=== PATIENT | male | born 1945 | race Caucasian/White ===

== ENCOUNTER → 2018-09-07 | Outpatient (CLI) | payer OTHER | LOC: FIMAGING 10:09 | PROVIDERS: ATTEND Internal Medicine Cardiovascular Disease | DX: Z13.6 Encounter for screening for cardiovascular disorders (principal); I71.2 Thoracic aortic aneurysm, without rupture; I10 Essential (primary) hypertension; E78.5 Hyperlipidemia, unspecified; R91.8 Other nonspecific abnormal finding of lung field; Z82.49 Family history of ischemic heart disease and other diseases of the circulatory system ==

== ENCOUNTER 2018-10-20 03:33 | Emergency (ER) | payer OTHER ==
[2018-10-20] MEDS ORDERED: NS 1,000 ML IV ONE (03:54)
[2018-10-20 04:21] LABS: PLATELET COUNT 220 10^3/uL (150-400)
[2018-10-20] MEDS ORDERED: IOPAMIDOL (ISOVUE-300) 100 ML BTL ONE (05:15)
[2018-10-20] MEDS ORDERED: KETOROLAC 15 MG/1 ML SDV ONE (05:51)
[2018-10-20] MEDS ORDERED: KETOROLAC 15 MG/1 ML SDV IVP ONE (05:52)
[2018-10-20] MEDS ORDERED: AMOXICILLIN/CLAVULANATE POT 875/125 MG TAB PO ONE (06:47)
[2018-10-20] MEDS ORDERED: HYDROCOD/APAP 5/325 PREPACK#6 BTL TAKEHOME ONE (06:47)
--- NOTE | 2018-10-20 06:50 | EDPHY ---
H & P Stated Complaint: Abdominal Pain & Fever Time Seen by Provider: 10/20/18 04:56 HPI/ROS: HPI The patient presents with 2 days of progressive lower abdominal pain which started slowly and was intermittent, however overnight became constant and more severe. The pain is achy in nature, worse when he palpates his abdomen and is associated with a low-grade fever of 100.2 F. He has not had any nausea, vomiting, diarrhea, constipation. He denies any dysuria or hematuria. He has no prior history of similar pain.. REVIEW OF SYSTEMS 10 systems were reviewed and negative with the exception of the elements mentioned in the history of present illness. 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 Hypercholesterolemia, history of spinal fusion Soc Hx: Here with his PHYSICAL General Appearance: Alert, no distress Eyes: Pupils equal and round no pallor or injection ENT, Mouth: Mucous membranes moist Respiratory: There are no retractions, lungs are clear to auscultation Cardiovascular: Regular rate and rhythm Gastrointestinal: Abdomen is soft and tender in the left lower quadrant and right lower quadrant without guarding or rebound, no masses, bowel sounds normal Neurological: A&O, moves all extremities Skin: Warm and dry, no rashes Musculoskeletal: Neck is supple non tender Extremities: symmetrical, full range of motion Psychiatric: Patient is oriented X 3, there is no agitation Source: Patient Exam Limitations: No limitations - Personal History Current Tetanus/Diphtheria Vaccine: Yes Current Tetanus Diphtheria and Acellular Pertussis (TDAP): Yes - Medical/Surgical History Hx Asthma: No Hx Chronic Respiratory Disease: No Hx Diabetes: No Hx Cardiac Disease: No Hx Renal Disease: No Hx Cirrhosis: No Hx Alcoholism: No Hx HIV/AIDS: No Hx Splenectomy or Spleen Trauma: No Other PMH: Prostatectomy, High cholesterol, Spinal Fusion - Social History Smoking Status: Never smoked Constitutional: Initial Vital Signs Temperature (C) 37.4 C 10/20/18 03:37 Heart Rate 90 10/20/18 03:37 Respiratory Rate 18 10/20/18 03:37 Blood Pressure 128/82 H 10/20/18 03:37 O2 Sat (%) 95 10/20/18 03:37 O2 Delivery Mode Room Air Allergies/Adverse Reactions: Sulfa (Sulfonamide Antibiotics) Allergy (Verified 10/20/18 03:36) Home Medications: Medication Instructions Recorded Amoxicillin/Clavulanate Pot 875 mg PO BID #14 tab 10/20/18 [Augmentin 875 MG TAB (*)] Crestor 10/20/18 Medical Decision Making - Diagnostics Imaging Results: CT abdomen pelvis with IV contrast demonstrates acute sigmoid diverticulitis without evidence of pericolonic abscess or free air, status post total prostatectomy. Interpreted by direct Radiology. Differential Diagnosis: 73-year-old male who is relatively healthy presents from home with 2 days of progressive lower abdominal pain, now associated with low-grade fever. On exam , he is generally well-appearing with normal vital signs, he does have mild tenderness of his lower abdomen. In the emergency department, patient was given IV fluids, basic labs were obtained which did demonstrate slightly elevated white blood cell count as well as elevated lipase. CT scan of abdomen pelvis performed and demonstrated diverticulitis without complication. The patient was given Toradol for pain. On reassessment he was feeling well. I offered him admission to the hospital verses outpatient antibiotics and he would like to be discharged recuperate at home. I feel this is reasonable as he does not have any complicated diverticulitis, is able to take p. O. Antibiotics and is reliable. I have given him his 1st dose of Augmentin here. He was able to tolerate this without difficulty. I have advised him to follow up with his primary care doctor. - Data Points Laboratory Results: Laboratory Results 10/20/18 04:05 10/20/18 04:05 10/20/18 10/20/18 04:05 04:05 WBC 10.04 10^3/uL H 10^3/uL (3.80-9.50) RBC 4.51 10^6/uL 10^6/uL (4.40-6.38) Hgb 13.6 g/dL L g/dL (13.7-17.5) Hct 40.7 % % (40.0-51.0) MCV 90.2 fL fL (81.5-99.8) MCH 30.2 pg pg (27.9-34.1) MCHC 33.4 g/dL g/dL (32.4-36.7) RDW 12.4 % % (11.5-15.2) Plt Count 220 10^3/uL 10^3/uL (150-400) MPV 9.4 fL fL (8.7-11.7) Neut % (Auto) 79.3 % H % (39.3-74.2) Lymph % (Auto) 8.6 % L % (15.0-45.0) [place] % (Auto) 9.9 % % (4.5-13.0) Eos % (Auto) 1.2 % % (0.6-7.6) Baso % (Auto) 0.6 % % (0.3-1.7) Nucleat RBC Rel Count 0.0 % % (0.0-0.2) Absolute Neuts (auto) 7.97 10^3/uL H 10^3/uL (1.70-6.50) Absolute Lymphs (auto) 0.86 10^3/uL L 10^3/uL (1.00-3.00) Absolute Monos (auto) 0.99 10^3/uL H 10^3/uL (0.30-0.80) Absolute Eos (auto) 0.12 10^3/uL 10^3/uL (0.03-0.40) Absolute Basos (auto) 0.06 10^3/uL 10^3/uL (0.02-0.10) Absolute Nucleated RBC 0.00 10^3/uL 10^3/uL (0-0.01) Immature Gran % 0.4 % % (0.0-1.1) Immature Gran # 0.04 10^3/uL 10^3/uL (0.00-0.10) Sodium 139 mEq/L mEq/L (135-145) Potassium 4.1 mEq/L mEq/L (3.5-5.2) Chloride 112 mEq/L H mEq/L (97-110) Carbon Dioxide 22 mEq/l mEq/l (22-31) Anion Gap 5 mEq/L L mEq/L (6-14) BUN 31 mg/dL H mg/dL (7-23) Creatinine 1.0 mg/dL mg/dL (0.7-1.3) Estimated GFR > 60 Glucose 108 mg/dL H mg/dL (70-100) Calcium 8.9 mg/dL mg/dL (8.5-10.4) Total Bilirubin 0.8 mg/dL mg/dL (0.1-1.4) Conjugated Bilirubin 0.2 mg/dL mg/dL (0.0-0.5) Unconjugated Bilirubin 0.6 mg/dL mg/dL (0.0-1.1) AST 29 IU/L IU/L (17-59) ALT 30 IU/L IU/L (21-72) Alkaline Phosphatase 55 IU/L IU/L (38-126) Total Protein 6.1 g/dL L g/dL (6.3-8.2) Albumin 3.5 g/dL g/dL (3.5-5.0) Lipase 795 IU/L H IU/L (23-300) Medications Given: Discontinued Medications Hydrocodone Bitart/Acetaminophen (Marion 5/325mg Prepack#6) 1 btl TAKEHOME EDNOW ONE Stop: 10/20/18 06:48 Last Admin: 10/20/18 06:58 Dose: 1 btl Amoxicillin/Clavulanate Potassium (Augmentin 875mg) 875 mg PO EDNOW ONE PRN Reason: Protocol Stop: 10/20/18 06:48 Last Admin: 10/20/18 06:57 Dose: 875 mg Sodium Chloride (Ns) 1,000 mls @ 0 mls/hr IV EDNOW ONE; Wide Open PRN Reason: Protocol Stop: 10/20/18 03:55 Last Admin: 10/20/18 04:05 Dose: 1,000 mls Ketorolac Tromethamine (Toradol) 15 mg IVP EDNOW ONE Stop: 10/20/18 05:53 Last Admin: 10/20/18 05:53 Dose: 15 mg Departure - Departure Disposition: Home, Routine, Self-Care Clinical Impression: Diverticulitis Condition: Good Instructions: Hydrocodone/Acetaminophen (By mouth), Diverticulitis (ED) Additional Instructions: Please make sure to drink plenty of fluids. You should return to the emergency department if your worse in any way. I recommend you follow up with your primary care doctor next week. You likely will need a follow-up colonoscopy. Referrals: Ruth Sandhu MD [Primary Care Provider] - As per Instructions Prescriptions: Amoxicillin/Clavulanate Pot [Augmentin 875 MG TAB (*)] 875 mg PO BID #14 tab
[2018-10-20 07:03] VITALS: BP 142/75
== END 2018-10-20 07:03 | disposition home or self-care (01) ==
DX: K57.32 Diverticulitis of large intestine without perforation or abscess without bleeding (principal); Z90.79 Acquired absence of other genital organ(s); E86.9 Volume depletion, unspecified
CPT/HCPCS: 74177; 96361; 96374; 99285; J1885; Q9967

== ENCOUNTER 2018-10-31 21:33 | Emergency (ER) | payer OTHER ==
[2018-10-31] MEDS ORDERED: ONDANSETRON 4 MG/2 ML VIAL ONE (22:13)
[2018-10-31] MEDS ORDERED: KETOROLAC 15 MG/1 ML SDV IVP ONE (22:18)
[2018-10-31] MEDS ORDERED: NS 1,000 ML IV ONE (22:18)
[2018-10-31] MEDS ORDERED: ONDANSETRON 4 MG/2 ML VIAL IVP ONE (22:18)
--- NOTE | 2018-10-31 22:19 | EDPHY ---
H & P Stated Complaint: Abdominal Pain Time Seen by Provider: 10/31/18 22:07 HPI/ROS: Chief Complaint: Abdominal pain, nausea, vomiting HPI: A 73 year presenting with upper abdominal pain that began about 7:00 a.m. Tonight. Patient was recently diagnosed with diverticulitis couple weeks ago and completed a course of Augmentin. Patient states that he has not had any pain or discomfort for the last couple weeks. Otherwise felt well. No fevers or chills. Patient is describing the pain as very different from his diverticulitis. In the upper abdomen. Had some mild nausea. Nausea got significantly worsening vomited just prior to my evaluation. No fevers or chills. No urinary symptoms. No chest pain or shortness of breath. ROS: 10 systems were reviewed and were negative except those elements noted in the HPI. PMH: Diverticulitis Social History: No smoking, no alcohol, no recreational drug use Family History: non-contributory Physical Exam: Gen: Awake, Alert, No Distress HEENT: Nose: no rhinorrhea Eyes: PERRLA, EOMI Mouth: Moist mucosa Neck: Supple, no JVD Chest: nontender, lungs clear to auscultation Heart: S1, S2 normal, no murmur Abd: Soft, non-tender, no guarding Back: no CVA tenderness, no midline tenderness Ext: no edema, non-tender Skin: no rash Neuro: CN II-XII intact, Sensation grossly intact, Strength 5/5 in bilateral upper and lower extremities - Personal History Current Tetanus/Diphtheria Vaccine: Yes Current Tetanus Diphtheria and Acellular Pertussis (TDAP): Yes - Medical/Surgical History Hx Asthma: No Hx Chronic Respiratory Disease: No Hx Diabetes: No Hx Cardiac Disease: No Hx Renal Disease: No Hx Cirrhosis: No Hx Alcoholism: No Hx HIV/AIDS: No Hx Splenectomy or Spleen Trauma: No Other PMH: Prostatectomy, High cholesterol, Spinal Fusion - Social History Smoking Status: Never smoked Constitutional: Initial Vital Signs Temperature (C) 36.4 C 10/31/18 21:38 Heart Rate 74 10/31/18 21:38 Respiratory Rate 18 10/31/18 21:38 Blood Pressure 141/81 H 10/31/18 21:38 O2 Sat (%) 96 10/31/18 21:38 O2 Delivery Mode Room Air Allergies/Adverse Reactions: Sulfa (Sulfonamide Antibiotics) Allergy (Verified 10/31/18 21:36) Home Medications: Medication Instructions Recorded Crestor 10/20/18 Aspirin 81mg (*) 10/31/18 Medical Decision Making - Diagnostics Imaging Results: IMPRESSION: 1. 4 mm echogenic polyp versus stone adherent to the gallbladder wall, immobile on examination. No wall thickening or pericholecystic fluid. Negative Silva's sign. 2. Right renal peripelvic cysts. No hydronephrosis. ELECTRONICALLY SIGNED BY: Melina Heath MD Nov 01, 2018 2:14:55 AM MDT ED Course/Re-evaluation: 73-year-old male presenting with epigastric abdominal pain. Lipase is mildly elevated. Remainder is studies are normal. Does not drink alcohol. Ultrasound shows a polyp but no common bile duct dilatation or findings suggestive acute cholecystitis. Patient is feeling much improved. Plan will be for discharge with follow-up as an outpatient, return for any concerns. - Data Points Laboratory Results: Laboratory Results 10/31/18 21:55 10/31/18 21:55 10/31/18 10/31/18 10/31/18 22:29 21:55 21:55 WBC 15.31 10^3/uL H 10^3/uL (3.80-9.50) RBC 5.07 10^6/uL 10^6/uL (4.40-6.38) Hgb 15.1 g/dL g/dL (13.7-17.5) Hct 45.3 % % (40.0-51.0) MCV 89.3 fL fL (81.5-99.8) MCH 29.8 pg pg (27.9-34.1) MCHC 33.3 g/dL g/dL (32.4-36.7) RDW 12.3 % % (11.5-15.2) Plt Count 310 10^3/uL 10^3/uL (150-400) MPV 9.2 fL fL (8.7-11.7) Neut % (Auto) 89.8 % H % (39.3-74.2) Lymph % (Auto) 4.2 % L % (15.0-45.0) [place] % (Auto) 4.4 % L % (4.5-13.0) Eos % (Auto) 0.8 % % (0.6-7.6) Baso % (Auto) 0.3 % % (0.3-1.7) Nucleat RBC Rel Count 0.0 % % (0.0-0.2) Absolute Neuts (auto) 13.72 10^3/uL H 10^3/uL (1.70-6.50) Absolute Lymphs (auto) 0.65 10^3/uL L 10^3/uL (1.00-3.00) Absolute Monos (auto) 0.68 10^3/uL 10^3/uL (0.30-0.80) Absolute Eos (auto) 0.13 10^3/uL 10^3/uL (0.03-0.40) Absolute Basos (auto) 0.05 10^3/uL 10^3/uL (0.02-0.10) Absolute Nucleated RBC 0.00 10^3/uL 10^3/uL (0-0.01) Immature Gran % 0.5 % % (0.0-1.1) Immature Gran # 0.08 10^3/uL 10^3/uL (0.00-0.10) Sodium 140 mEq/L mEq/L (135-145) Potassium 4.2 mEq/L mEq/L (3.5-5.2) Chloride 107 mEq/L mEq/L (97-110) Carbon Dioxide 23 mEq/l mEq/l (22-31) Anion Gap 10 mEq/L mEq/L (6-14) BUN 35 mg/dL H mg/dL (7-23) Creatinine 1.1 mg/dL mg/dL (0.7-1.3) Estimated GFR > 60 Glucose 102 mg/dL H mg/dL (70-100) Calcium 9.2 mg/dL mg/dL (8.5-10.4) Total Bilirubin 0.6 mg/dL mg/dL (0.1-1.4) AST 30 IU/L IU/L (17-59) ALT 28 IU/L IU/L (21-72) Alkaline Phosphatase 62 IU/L IU/L (38-126) POC Troponin I 0.00 ng/mL ng/mL (0.00-0.08) Total Protein 7.1 g/dL g/dL (6.3-8.2) Albumin 4.2 g/dL g/dL (3.5-5.0) Lipase 536 IU/L H IU/L (23-300) Medications Given: Discontinued Medications Sodium Chloride (Ns) 1,000 mls @ 0 mls/hr IV ONCE ONE; Wide Open PRN Reason: Protocol Stop: 10/31/18 22:19 Last Admin: 10/31/18 22:22 Dose: 1,000 mls Ketorolac Tromethamine (Toradol) 15 mg IVP EDNOW ONE Stop: 10/31/18 22:19 Last Admin: 10/31/18 22:23 Dose: 15 mg Ondansetron HCl (Zofran) 4 mg IVP EDNOW ONE Stop: 10/31/18 22: Last Admin: 10/31/18 22:23 Dose: 4 mg Point of Care Test Results: Chemistry 10/31/18 22:29 POC Troponin I 0.00 ng/mL ng/mL (0.00-0.08) Departure - Departure Disposition: Home, Routine, Self-Care Clinical Impression: Pancreatitis Condition: Good Instructions: Pancreatitis (ED) Additional Instructions: Take ibuprofen, 600 mg every 8 hr. You may alternate with acetaminophen, 1000 mg every 8 hr. You may take Zofran as needed for pain. Follow up with primary care physician in 2-3 days for re-evaluation. Return to the emergency department for increasing pain, nausea, vomiting, fevers , chills, or any other concerns. Referrals: Ruth Sandhu MD [Primary Care Provider] - As per Instructions
[2018-10-31 23:03] LABS: PLATELET COUNT 310 10^3/uL (150-400)
[2018-11-01] MEDS ORDERED: ONDANSETRON 4MG PREPACK#2 BTL TAKEHOME ONE (02:28)
[2018-11-01 02:39] VITALS: BP 136/77
--- NOTE | 2018-11-01 04:36 | CPEKG ---
Test Reason : OPEN Blood Pressure : / mmHG Vent. Rate : 065 BPM Atrial Rate : 065 BPM P-R Int : 157 ms QRS Dur : 092 ms QT Int : 441 ms P-R-T Axes : 051 059 065 degrees QTc Int : 459 ms Sinus rhythm Abnormal R-wave progression, early transition Confirmed by Navarro Armstrong [id number] on 11/01/2018 4:35:53 AM Referred By: Navarro Armstrong Confirmed By:Navarro Armstrong
== END 2018-11-01 02:39 | disposition home or self-care (01) ==
DX: K85.90 Acute pancreatitis without necrosis or infection, unspecified (principal); E86.9 Volume depletion, unspecified; E78.5 Hyperlipidemia, unspecified; Z88.2 Allergy status to sulfonamides; Z98.1 Arthrodesis status
CPT/HCPCS: 76705; 93005; 96361; 96374; 96375; 99285; J1885; J2405; 84484-ER